=== PATIENT | female | born 1990 | race Caucasian/White ===

== ENCOUNTER 2019-06-05 13:15 | Emergency (ER) | payer OTHER ==
[2019-06-05 13:24] VITALS: BP 133/88; PULSE 113; RESP 18; TEMP 98.8
[2019-06-05] MEDS ORDERED: ACETAMINOPHEN TAB 325 MG TAB PO STA (13:46)
--- NOTE | 2019-06-05 13:59 | ED ---
General Adult HPI - General Chief complaint: Upper Respiratory Infection Stated complaint: chest/neck pain Time Seen by Provider: 06/05/19 13:26 Source: patient Mode of arrival: ambulatory Limitations: no limitations - History of Present Illness Initial comments: Patient is a 28-year-old female presenting to the emergency department with a chief complaint of throat and ear pain. States his symptoms started 2 days ago initially with a sore throat and after she developed otalgia. Patient denies any pain with traction of the left ear. Patient currently is taking Pen-Vee K for a tooth infection that was prescribed by her primary care. Patient does have a scheduled department to see the dentist. Does report some tenderness over the left submandibular region. Does report a fever at home. Denies dysphagia or odontophagia. Denies any difficulty breathing. The report some chest discomfort prior to ED arrival but states that is due to her anxiety. States there is no discomfort at this time. Denies changes in voice or drooling. - Related Data Previous Rx's Medication Instructions Recorded Acetaminophen Tab [Tylenol Tab] 650 mg PO Q4H PRN #24 tablet 08/28/14 Allergies Allergy/AdvReac Type Severity Reaction Status Date / Time No Known Allergies Allergy Verified 06/05/19 13:24 Review of Systems ROS Statement: Those systems with pertinent positive or pertinent negative responses have been documented in the HPI. ROS Other: All systems not noted in ROS Statement are negative. Past Medical History Past Medical History: No Reported History History of Any Multi-Drug Resistant Organisms: None Reported Past Surgical History: Tubal Ligation Additional Past Surgical History / Comment(s): metal clips on fallopian tubes, LEAP procedure 2006 Past Psychological History: No Psychological Hx Reported Smoking Status: Current every day smoker Past Alcohol Use History: Occasional Past Drug Use History: None Reported General Exam Limitations: no limitations General appearance: alert, in no apparent distress Head exam: Present: atraumatic, normocephalic, normal inspection Eye exam: Present: normal appearance Pupils: Present: normal accommodation ENT exam: Present: normal exam, normal oropharynx (Uvula midline. Mild left- sided tonsillar enlargement without erythema or exudates. No signs of peritonsillar abscess. No oral lesions noted. No gingival erythema. No periapical abscess.), mucous membranes moist, TM's normal bilaterally (Relief of symptoms with traction of the left ear. Unable to fully visualize the tympanic membrane due to cerumen impaction.), normal external ear exam, other (no left- sided facial swelling. No signs of Varghese's angina.) Neck exam: Present: normal inspection, full ROM. Absent: tenderness, meningismus, thyromegaly Respiratory exam: Present: normal lung sounds bilaterally Cardiovascular Exam: Present: regular rate, normal rhythm, normal heart sounds Extremities exam: Present: normal inspection, full ROM Back exam: Present: normal inspection, full ROM Neurological exam: Present: alert, oriented X3 Psychiatric exam: Present: normal affect, normal mood Skin exam: Present: warm, dry, intact, normal color Course Vital Signs 06/05/19 13:20 Temperature 98.8 F Pulse Rate 113 H Respiratory 18 Rate Blood Pressure 133/88 O2 Sat by Pulse 99 Oximetry Medical Decision Making - Medical Decision Making patient is 28-year-old female presenting to emergency Department with chief complaint sore throat and earache. Patient did have symptoms for 2 days. She is currently on penicillin VK. She has so for only taken 2 doses of the medication. She did have fever at home. No changes in voice or drooling. No Radha Diehl dysphagia. No difficulty breathing. Physical examination patient does have left tonsillar enlargement with no erythema or exudates. Unable to fully visualize left tympanic membrane due to cerumen impaction the patient did have relief with flexion of the left auricle. Patient did report a fever at home. No signs of peritonsillar abscess. No signs of Varghese's angina. Vitals stable in the ED. Patient has possible otitis media with pharyngitis, the Penicillin VK will cover for those infections. Patient has so far only taken 2 doses of medication. I suspect she will have improvement of symptoms after several more doses of the antibiotic. She did have some discomfort in her chest prior to the arrival but states that is due to her anxiety. No more chest discomfort on initial evaluation. Return parameters were thoroughly discussed with patient was under setting agreeable. Case discussed with physician. Disposition Clinical Impression: Otitis media, left, Sore throat Disposition: HOME SELF-CARE Condition: Stable Instructions (If sedation given, give patient instructions): Ear Infection (ED) Additional Instructions: continue taking antibiotics as prescribed. Return to the emergency department if she develops any changes in voice, increased painful swallowing. Follow with primary care. Is patient prescribed a controlled substance at d/c from ED?: No Referrals: Sachi Ferreira MD [Primary Care Provider] - 1-2 days Time of Disposition: 13:59
== END 2019-06-05 14:01 | disposition home or self-care (01) ==
LOC: EC 13:15
DX: H66.92 Otitis media, unspecified, left ear (principal); J02.9 Acute pharyngitis, unspecified; H61.22 Impacted cerumen, left ear; F41.9 Anxiety disorder, unspecified; F17.200 Nicotine dependence, unspecified, uncomplicated
CPT/HCPCS: 99283

== ENCOUNTER → 2019-10-22 | Outpatient (CLI) | payer OTHER ==
--- NOTE | 2019-10-23 07:38 | US ---
EXAMINATION TYPE: US transvaginal DATE OF EXAM: 10/22/2019 COMPARISON: 07/20/2014 CLINICAL HISTORY: N93.8 Dysfunctional uterine bleeding. TECHNIQUE: Transvaginal (TV). Patient unable to fill her bladder, transvaginal done. Date of LMP: Patient bleeding for last 3 weeks EXAM MEASUREMENTS: Uterus: 9.5 x 4.6 x 6.3 cm Endometrial Stripe: 0.6 cm Right Ovary: 2.6 x 1.4 x 1.8 cm Left Ovary: 2.9 x 1.8 x 1.7 cm 1. Uterus: Anteverted wnl 2. Endometrium: wnl 3. Right Ovary: wnl 4. Left Ovary: wnl 5. Bilateral Adnexa: wnl 6. Posterior cul-de-sac: wnl IMPRESSION: A few tiny ovarian follicles. Otherwise unremarkable study.
== END | disposition home or self-care (01) ==
LOC: RADUSWWP 16:12
PROVIDERS: ATTEND Obstetrics & Gynecology
DX: N93.8 Other specified abnormal uterine and vaginal bleeding (principal)
CPT/HCPCS: 76830

== ENCOUNTER → 2020-07-25 | Outpatient (CLI) | payer OTHER ==
--- NOTE | 2020-07-25 10:28 | CT ---
EXAMINATION TYPE: CT brain wo con DATE OF EXAM: 07/25/2020 COMPARISON: None HISTORY: R 51, headache CT DLP: 999.8 mGycm. Automated Exposure Control for Dose Reduction was Utilized. TECHNIQUE: CT scan of the head is performed without contrast. FINDINGS: There is no acute intracranial hemorrhage or midline shift identified. The ventricles an d sulci are within normal limits in size. Low dense focus posterior to the left cerebellar hemisphere medially likely represents an arachnoid cyst measuring 2.4 x 1.1 x 1.8 cm. Minimal inferior cerebell ar tonsillar ectopia is noted. The globes are intact and the visualized sinuses are clear. 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 IMPRESSION: No acute abnormality. Probable arachnoid cyst posterior fossa, additional findings above .
== END | disposition home or self-care (01) ==
LOC: RADCTMAIN 06:56
PROVIDERS: ATTEND Internal Medicine
DX: Q04.8 Other specified congenital malformations of brain (principal)
CPT/HCPCS: 70450

== ENCOUNTER → 2021-07-06 | Outpatient (CLI) | payer OTHER ==
--- NOTE | 2021-07-06 07:55 | US ---
EXAMINATION TYPE: US abdomen complete DATE OF EXAM: 07/06/2021 COMPARISON: NONE CLINICAL HISTORY: R10.12 LUQ Pain. EXAM MEASUREMENTS: Liver Length: 12.5 cm Gallbladder Wall: 0.1 cm CBD: 0.3 cm Spleen: 10.1 cm Right Kidney: 10.5 x 3.1 x 5.4 cm Left Kidney: 9.7 x 4.3 x 4.9 cm Pancreas: wnl Liver: wnl Gallbladder: wnl Evidence for sonographic Starkey's sign: No CBD: wnl Spleen: wnl Right Kidney: No hydronephrosis or masses seen Left Kidney: No hydronephrosis or masses seen Upper IVC: wnl Abd Aorta: wnl The liver is homogenous. The intrahepatic portion of the IVC and proximal abdominal aorta are within normal limits. There is no evidence of cholelithiasis. Common bile duct is unremarkable. The visu alized portions of the pancreas are homogenous. The spleen is unremarkable. Kidneys are symmetric a nd free of hydronephrosis. No renal lesions are seen. IMPRESSION: No acute findings are evident.
== END | disposition home or self-care (01) ==
LOC: RADUSWWP 07:00
PROVIDERS: ATTEND Internal Medicine
DX: R10.12 Left upper quadrant pain (principal)
CPT/HCPCS: 76700

== ENCOUNTER 2021-10-22 13:22 | Emergency (ER) | payer OTHER ==
[2021-10-22] MEDS ORDERED: ORPHENADRINE 30 MG/ML 2 ML VIAL IM STA (15:06)
[2021-10-22] MEDS ORDERED: MORPHINE SULFATE 4 MG/ML SYRINGE IM STA (15:07)
--- NOTE | 2021-10-22 15:37 | CT ---
EXAMINATION TYPE: CT brain cspine wo con CT DLP: 1282.8 mGycm, Automated exposure control for dose reduction was used. DATE OF EXAM: 10/22/2021 3:26 PM COMPARISON: CT brain 07/25/2020. CLINICAL INDICATION:Female, 31 years old with history of fall; Pt fall, hit back of head, denies LOC. TECHNIQUE: Brain: Multiple axial CT images of the brain were obtained without IV contrast. Cspine: Axial CT images from the skull base to the inferior aspect of T2 we obtained without intraven ous contrast. Coronal and sagittal reformatted images were also reviewed. FINDINGS: Brain: Extra-axial spaces: No abnormal extra-axial fluid collections. Stable low-density focus posterior to the left cerebellar hemisphere medially likely representing an arachnoid cyst measuring approximately 2 x 2 x 1 cm. Ventricular system: Within normal limits Cerebral parenchyma: No acute intraparenchymal hemorrhage or mass effect. The avila-white junction is well differentiated. Cerebellum: Unremarkable. Mass effect: No evidence of midline shift. Intracranial vasculature: unremarkable Soft tissues: Normal. Calvarium/osseous structures: No depressed skull fracture. Paranasal sinuses and mastoid air cells: Clear. Visualized orbits: Orbital contents are intact. Cervical spine: Fracture: None. Osseous structures: Sclerotic focus within the T1 vertebral body likely representing a benign bone is land. Incomplete fusion of posterior arch of C1 again demonstrated. Vertebral alignment: Within normal limits. Spinal canal/Neural Foramina: No evidence of significant spinal canal narrowing. No evidence for sign ificant neural foraminal stenosis. Neck soft tissues: Prevertebral soft tissues are within normal limits. Other: The airway is patent. The lung apices are clear. IMPRESSION: * No acute intracranial process. * Probable posterior fossa arachnoid cyst redemonstrated. * No evidence of cervical spine fracture.
--- NOTE | 2021-10-22 15:54 | XR ---
EXAMINATION TYPE: XR scapula bilateral DATE OF EXAM: 10/22/2021 COMPARISON: NONE HISTORY: Bilateral scapular pain. Recent fall injury. TECHNIQUE: 2 views bilateral scapula. FINDINGS: No acute displaced scapular fracture bilaterally. Visualized ribs are intact bilaterally. V isualized lungs are clear bilaterally. IMPRESSION: As above.
[2021-10-22] MEDS ORDERED: ACETAMINOPHEN TAB 500 MG TAB PO STA (15:55)
--- NOTE | 2021-10-22 15:56 | XR ---
EXAMINATION TYPE: XR thoracic spine 2V DATE OF EXAM: 10/22/2021 COMPARISON: NONE HISTORY: Pain TECHNIQUE: 3 views submitted FINDINGS: Alignment is anatomic. There is mild superior endplate deformity in the mid thoracic spine. Vertebr al body height and disc interspaces are maintained. IMPRESSION: 1. CT thoracic spine recommended for mild superior endplate deformity mid to lower thoracic spine dexter roximate level of T9 or T10..
[2021-10-22] MEDS ORDERED: LIDOCAINE 5% PATCH TOPICAL SCH (16:00)
--- NOTE | 2021-10-22 16:38 | CT ---
EXAMINATION TYPE: CT thoracic spine wo con CT DLP: 524.6 mGycm, Automated exposure control for dose reduction was used. DATE OF EXAM: 10/22/2021 4:29 PM COMPARISON: Chest radiographs from same day CLINICAL INDICATION:Female, 31 years old with history of fall, endplate deformity on xray, Fall. TECHNIQUE: Axial images of the thoracic spine were obtained without contrast. Coronal and sagittal re formats were performed. 3-D reformats of the bones were created on a separate workstation and submitt ed for review. FINDINGS: The thoracic vertebral bodies have preserved heights and alignment. Intervertebral discs and osseous structures have normal appearance. I do not see any evidence of extradural defects nor significant spinal canal narrowing at any thoraci c vertebral body level. Note is made of stitching artifact through the L3 vertebral body IMPRESSION: No CT correlate for T9-T10 endplate deformity. No evidence of acute fracture.
--- NOTE | 2021-10-22 16:45 | ED ---
Fall HPI - General Chief Complaint: Fall Stated Complaint: [id number]/back injury Time Seen by Provider: 10/22/21 14:45 Source: patient Mode of arrival: ambulatory - History of Present Illness Initial Comments: She is a 31-year-old female who presents to the emergency department for evaluation of fall. Patient states she slipped on water while working had 2 more intense and fell onto her upper back and head. Patient denies blood thinner use. Patient endorses moderate headache, neck pain, upper back, and shoulder blade pain. She states she has history of arachnoid cyst therefore she wanted her fall checked out. She denies leg weakness, numbness, and tingling. Denies numbness and tingling around the groin and buttock region. Denies loss of bowel and bladder function. Denies chest pain, shortness of breath, and other concerns. - Related Data Previous Rx's Medication Instructions Recorded Acetaminophen Tab [Tylenol Tab] 650 mg PO Q4H PRN #24 tablet 08/28/14 Ibuprofen [Motrin] 800 mg PO Q6HR #30 tab 10/22/21 Lidocaine 5% Patch [Lidoderm 5% 1 patch TOPICAL DAILY 5 Days #5 10/22/21 Patch] patch Allergies Allergy/AdvReac Type Severity Reaction Status Date / Time No Known Allergies Allergy Verified 10/22/21 14:49 Review of Systems ROS Statement: Those systems with pertinent positive or pertinent negative responses have been documented in the HPI. ROS Other: All systems not noted in ROS Statement are negative. Past Medical History Past Medical History: No Reported History History of Any Multi-Drug Resistant Organisms: None Reported Past Surgical History: Tubal Ligation Additional Past Surgical History / Comment(s): metal clips on fallopian tubes, LEAP procedure 2006 Past Psychological History: No Psychological Hx Reported Past Alcohol Use History: Occasional Past Drug Use History: None Reported General Exam Limitations: no limitations General appearance: alert, in no apparent distress Head exam: Present: atraumatic, normocephalic, normal inspection Eye exam: Present: normal appearance, PERRL, EOMI. Absent: scleral icterus, conjunctival injection, periorbital swelling Neck exam: Present: normal inspection, tenderness (left paraverterbral ). Absent: meningismus, lymphadenopathy Respiratory exam: Present: normal lung sounds bilaterally. Absent: respiratory distress, wheezes, rales, rhonchi, stridor Cardiovascular Exam: Present: regular rate, normal rhythm, normal heart sounds. Absent: systolic murmur, diastolic murmur, rubs, gallop, clicks Back exam: Present: normal inspection, full ROM. Absent: tenderness, CVA tenderness (R), CVA tenderness (L), paraspinal tenderness, vertebral tenderness Neurological exam: Present: alert, oriented X3, CN II-XII intact Psychiatric exam: Present: normal affect, normal mood Skin exam: Present: warm, dry, intact, normal color. Absent: rash Course Vital Signs 10/22/21 10/22/21 14:46 16:57 Temperature 98.6 F 97.6 F Pulse Rate 77 88 Respiratory 20 18 Rate Blood Pressure 128/85 106/78 O2 Sat by Pulse 100 98 Oximetry Medical Decision Making - Medical Decision Making This is a 31-year-old female presents for evaluation of fall. Thorough history and examination were performed. Patient is well-appearing. Patient has some left paravertebral tenderness of the neck otherwise a physical exam is unremarkable. Pain controlled. CT of the brain and C-spine without contrast shows no acute intracranial process and no evidence of cervical spine fracture as well as posterior fossa arachnoid cyst redemonstrated.Bilateral scapula x-rays negative for acute process. Lasix spine x-ray shows mild superior endplate deformity in the mid to low thoracic spine approximately at level T9 or T10 with recommendation of the CT. Patient does not have point tenderness in this region. CT of the thoracic spine showed no evidence of extradural defects nor significant spinal canal narrowing at any thoracic vertebral body level. Results discussed with patient. Patient will be discharged with symptomatic management. Return parameters discussed. Patient to follow-up with her primary care provider in one to 2 days. She verbalizes understanding and is agreeable to this plan. Dr. Gutierrez is my attending. Disposition Clinical Impression: Fall, Headache, Back pain, Neck pain Disposition: HOME SELF-CARE Condition: Good Instructions (If sedation given, give patient instructions): Acute Headache (ED), Back Pain (ED), Fall Prevention (ED) Additional Instructions: Apply lidocaine patches as needed. Take Tylenol or Motrin for pain. Follow-up with primary care provider in one to 2 days. Return to the emergency department if you experience new, concerning, or worsening symptoms. Prescriptions: Lidocaine 5% Patch [Lidoderm 5% Patch] 1 patch TOPICAL DAILY 5 Days #5 patch Ibuprofen [Motrin] 800 mg PO Q6HR #30 tab Is patient prescribed a controlled substance at d/c from ED?: No Referrals: Sachi Ferreira MD [Primary Care Provider] - 1-2 days Time of Disposition: 16:45
[2021-10-22 16:57] VITALS: BP 106/78; PULSE 88; RESP 18; TEMP 97.6
== END 2021-10-22 16:56 | disposition home or self-care (01) ==
LOC: EC 13:22
DX: R51.9 Headache, unspecified (principal); M54.50 Low back pain, unspecified; M54.2 Cervicalgia
CPT/HCPCS: 70450; 72070; 72125; 72128; 99284

== ENCOUNTER 2022-12-24 04:56 | Emergency (ER) | payer OTHER ==
--- NOTE | 2022-12-24 07:06 | ED ---
URI HPI - General Chief Complaint: Upper Respiratory Infection Stated Complaint: Covid Test Time Seen by Provider: 12/24/22 06:28 Source: patient, RN notes reviewed Mode of arrival: ambulatory Limitations: no limitations - History of Present Illness Initial Comments: 32-year-old female presents emergency Department with chief complaint of needing Covid 19 testing. Patient states her tested positive. Patient states she has mild symptoms including cough, congestion, body aches and minimal shortness of breath. Patient states she has had in the past. She denies any nausea vomiting diarrhea constipation denies any recent reported fever. - Related Data Previous Rx's Medication Instructions Recorded Acetaminophen Tab [Tylenol Tab] 650 mg PO Q4H PRN #24 tablet 08/28/14 Ibuprofen [Motrin] 800 mg PO Q6HR #30 tab 10/22/21 Lidocaine 5% Patch [Lidoderm 5% 1 patch TOPICAL DAILY 5 Days #5 10/22/21 Patch] patch Allergies Allergy/AdvReac Type Severity Reaction Status Date / Time No Known Allergies Allergy Verified 12/24/22 06:34 Review of Systems ROS Statement: Those systems with pertinent positive or pertinent negative responses have been documented in the HPI. ROS Other: All systems not noted in ROS Statement are negative. Past Medical History Past Medical History: No Reported History History of Any Multi-Drug Resistant Organisms: None Reported Past Surgical History: Tubal Ligation Additional Past Surgical History / Comment(s): metal clips on fallopian tubes, LEAP procedure 2006 Past Psychological History: No Psychological Hx Reported Smoking Status: Vaper Past Alcohol Use History: Occasional Past Drug Use History: None Reported General Exam Limitations: no limitations General appearance: alert, in no apparent distress Head exam: Present: atraumatic, normocephalic, normal inspection Eye exam: Present: normal appearance, PERRL, EOMI. Absent: scleral icterus, conjunctival injection, periorbital swelling ENT exam: Present: normal exam, normal oropharynx, mucous membranes moist Neck exam: Present: normal inspection, full ROM. Absent: tenderness, meningismus, lymphadenopathy Respiratory exam: Present: normal lung sounds bilaterally. Absent: respiratory distress, wheezes, rales, rhonchi, stridor Cardiovascular Exam: Present: regular rate, normal rhythm, normal heart sounds. Absent: systolic murmur, diastolic murmur, rubs, gallop, clicks GI/Abdominal exam: Present: soft, normal bowel sounds. Absent: distended, tenderness, guarding, rebound, rigid Course Vital Signs 12/24/22 06:32 Temperature 99.4 F Pulse Rate 109 H Respiratory 20 Rate Blood Pressure 127/88 O2 Sat by Pulse 99 Oximetry Medical Decision Making - Medical Decision Making Was pt. sent in by a medical professional or institution (JOANNA Kahn, ASSURANCE SENIOR MANAGER INSURANCE, urgent care, hospital, or residential...) When possible be specific @ -No Did you speak to anyone other than the patient for history (EMS, parent, family, police, friend...)? What history was obtained from this source @ -No Did you review nursing and triage notes (agree or disagree)? Why? @ -I reviewed and agree with nursing and triage notes Were old charts reviewed (outside hosp., previous admission, EMS record, old EKG, old radiological studies, urgent care reports/EKG's, residential records)? Report findings @ -No old charts were reviewed Differential Diagnosis (chest pain, altered mental status, abdominal pain women, abdominal pain men, vaginal bleeding, weakness, fever, dyspnea, syncope, headache, dizziness, GI bleed, back pain, seizure, CVA, palpatations, mental health, musculoskeletal)? @ -URI,covid EKG interpreted by me (3pts min.). @ -None X-rays interpreted by me (1pt min.). @ -None done CT interpreted by me (1pt min.). @ -None done U/S interpreted by me (1pt. min.). @ -None done What testing was considered but not performed or refused? (CT, X-rays, U/S, labs)? Why? @ -None What meds were considered but not given or refused? Why? @ -None Did you discuss the management of the patient with other professionals (karla castellanos i.e. JOANNA Kahn, ASSURANCE SENIOR MANAGER INSURANCE, lab, RT, psych nurse, social media marketing specialist, cement boat and barge loader, teacher, first aid officer, hospice case manager)? Give summary @ -No Was smoking cessation discussed for >3mins.? @ -No Was critical care preformed (if so, how long)? @ -No Were there social determinants of health that impacted care today? How? (Homelessness, low income, unemployed, alcoholism, drug addiction, transportation, low edu. Level, literacy, decrease access to med. care, long-term, rehab)? @ -No Was there de-escalation of care discussed even if they declined (Discuss DNR or withdrawal of care, Hospice)? DNR status @ -No What co-morbidities impacted this encounter? (DM, HTN, Smoking, COPD, CAD, Cancer, CVA, ARF, Chemo, Hep., AIDS, mental health diagnosis, sleep apnea, morbid obesity)? @ -None Was patient admitted / discharged? Hospital course, mention meds given and route, prescriptions, significant lab abnormalities, going to OR and other pertinent info. @ -Discharge patient is positive for Covid 19. Patient is currently stable, no signs of distress. Undiagnosed new problem with uncertain prognosis? @ -No Drug Therapy requiring intensive monitoring for toxicity (Heparin, Nitro, Insulin, Cardizem)? @ -No Were any procedures done? @ -No Diagnosis/symptom? @ -covid 19 Acute, or Chronic, or Acute on Chronic? @ -Acute Uncomplicated (without systemic symptoms) or Complicated (systemic symptoms)? @ -Uncomplicated Side effects of treatment? @ -No Exacerbation, Progression, or Severe Exacerbation? @ -No Poses a threat to life or bodily function? How? (Chest pain, USA, CT, pneumonia, PE, COPD, DKA, ARF, appy, cholecystitis, CVA, Diverticulitis, Homicidal, Suicidal, threat to staff... and all critical care pts) @ -No - Lab Data Lab Results 12/24/22 Range/Units 06:35 Coronavirus (PCR) Detected A (Not Detectd) Disposition Clinical Impression: COVID-19 Disposition: HOME SELF-CARE Condition: Stable Instructions (If sedation given, give patient instructions): COVID-19 (Coronavirus Disease 2019) (ED) Additional Instructions: Please return to the Emergency Department if symptoms worsen or any other concerns. Is patient prescribed a controlled substance at d/c from ED?: No Referrals: Sachi Ferreira MD [Primary Care Provider] - 1-2 days Time of Disposition: 07:14
[2022-12-24 07:17] VITALS: RESP 18
[2022-12-24 07:44] VITALS: BP 128/82; PULSE 98; TEMP 99.2
== END 2022-12-24 08:00 | disposition home or self-care (01) ==
LOC: EC 04:56
DX: U07.1 COVID-19 (principal); F17.290 Nicotine dependence, other tobacco product, uncomplicated
CPT/HCPCS: 87635; 99283